=== PATIENT | male | born 1975 | race American Indian/Alaskan Native ===

== ENCOUNTER 2020-02-10 13:24 | Emergency (ER) | payer MEDICAID, SELFPAY ==
[2020-02-10] VITALS (42 sets, daily range): BP systolic 136–181; BP diastolic 84–114; PULSE 102–117; RESP 12–24; TEMP 36.8; O2SAT 88–100; BMI 26.4
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
[2020-02-10 13:55] LABS: Add Manual Diff / Slide Review NO; Basophils Absolute Auto 0 /uL (0-100); Basophils Percent Auto 0.5 % (0-2); Eosinophils Absolute Auto 100 /uL (0-450); Eosinophils Percent Auto 1.4 % (2-4); Hematocrit 43.7 % (41-53); Hemoglobin 14.5 g/dL (13.5-17.5); Lymphocytes Absolute Auto 1500 /uL (1100-4500); Lymphocytes Percent Auto 16.6 % (25-40); Mean Corpuscular HGB Conc 33.2 % (30-36); Mean Corpuscular Hemoglobin 28.8 PG (26-34); Mean Corpuscular Volume 86.7 fL (80-100); Monocytes Absolute Auto 500 /uL (0-900); Neutrophils Absolute Auto 6900 /uL (1500-7000); Neutrophils Percent Auto 75.5 % (50-75); Platelet Count 416 X10^3/uL (150-400); Red Blood Cell Count 5.04 X10^6/uL (4.5-5.9); Red Cell Distribution Width 14.7 % (11.6-14.8); White Blood Cell Count 9.2 X10^3/uL (4.5-11.0)
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
--- NOTE | 2020-02-10 14:01 | PC.NURSE ---
see trauma flow sheet
[2020-02-10 14:06] LABS: PTT Partial Thromboplastin Tim 34 SECONDS (26.4-36.2)
[2020-02-10 14:08] LABS: Alanine Aminotransferase 116 IU/L (<50); Albumin 4.1 g/dL (3.5-5.0); Albumin Globulin Ratio 1.2 (1.0-2.8); Alkaline Phosphatase 105 U/L (38-126); Aspartate Aminotransferase 69 IU/L (17-59); BUN Creatinine Ratio 16.1 (6-22); Bilirubin Total 0.6 mg/dL (0.2-1.3); Blood Urea Nitrogen 14 mg/dL (9-20); Calcium 8.9 mg/dL (8.4-10.2); Carbon Dioxide 29 mmol/L (22-32); Chloride 106 mmol/L (98-107); Estimated Glomerular Filt Rate > 60.0 mL/min (>60); Globulin 3.3 g/dL (1.7-4.1); Glucose 96 mg/dL (70-100); HEMOLYSIS < 15 (0-50); Lipase 56 U/L (23-300); Potassium 3.9 mmol/L (3.4-5.1); Sodium 139 mmol/L (137-145); Total Protein 7.4 g/dL (6.3-8.2)
--- NOTE | 2020-02-10 14:09 | DI.RAD.S_ITS ---
PROCEDURE: XR FOREARM RT 2V INDICATIONS: injury TECHNIQUE: 2 views of the forearm were acquired. COMPARISON: None. FINDINGS: Bones: No fractures or dislocations. No suspicious bony lesions. Soft tissues: No suspicious soft tissue calcifications or masses. IMPRESSION: No acute osseous abnormality. Dictated by: Chaim Landa M.D. on 02/10/2020 at 13:40 Approved by: Chaim Landa M.D. on 02/10/2020 at 13:42
--- NOTE | 2020-02-10 14:09 | DI.RAD.S_ITS ---
PROCEDURE: XR WRIST RT MIN 3V INDICATIONS: injury TECHNIQUE: 4 views of the wrist were acquired. COMPARISON: None. FINDINGS: Bones: No fractures or dislocations. No suspicious bony lesions. Scaphoid view: Intact Soft tissues: No suspicious soft tissue calcifications. IMPRESSION: No acute osseous abnormality. Dictated by: Chaim Landa M.D. on 02/10/2020 at 13:37 Approved by: Chaim Landa M.D. on 02/10/2020 at 13:40
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
[2020-02-10] MEDS: HYDROMORPHONE 1 MG INJ IV ×3 (14:18→18:15)
--- NOTE | 2020-02-10 14:38 | PC.NURSE ---
charge nurse, Gemma with patient to Ct until primary Duncan Cornejo was available. Trauma help, Rn, Zachary and Leonora also with patient to CT scan
[2020-02-10 15:14] LABS: COVID19 -Nasal RAPID Negative (Negative)
[2020-02-10] MEDS: SODIUM CHLORIDE 0.9% 1,000 ML 1000 ML IV (15:43)
--- NOTE | 2020-02-10 15:48 | PC.NURSE ---
Patient has been given a total of 2 mg dilaudid via IV. He reports that his pain is under control. His heart rate is consistently above 100 bpm. Currently it is 115 and sinus rhythm. The patient stated that he smoked methamphetamine this morning. Still awaiting urine for drug screen.
[2020-02-10 18:18] LABS: Ur Creatinine Normal (Normal); Ur Specific Gravity Normal (Normal); Urine Tetrahydrocannabinol Negative (Negative); Urine pH Normal (Normal)
[2020-02-10 18:22] LABS: UR Morphine/Opiate cutoff 300 Positive (Negative); Urine Amphetamines Positive (Negative); Urine Barbiturates Negative (Negative); Urine Cocaine Negative (Negative); Urine MDMA Positive (Negative); Urine Methamphetamines Positive (Negative); Urine Phencyclidine Negative (Negative)
[2020-02-10 18:23] LABS: Urine Benzodiazepines Negative (Negative); Urine Methadone Negative (Negative); Urine Oxycodone Negative (Negative); Urine Tricyclic Antidepressant Negative (Negative)
--- NOTE | 2020-02-10 18:43 | PC.NURSE ---
weak pulse, provider aware and assessed pulse at bedside.
--- NOTE | 2020-02-10 18:47 | PC.NURSE ---
patient saline infusion paused but continued in route
== END 2020-02-10 18:48 | disposition short-term general hospital (02) ==
PROVIDERS: Emergency Provider Emergency Medicine
DX: S82.142A Displaced bicondylar fracture of left tibia, initial encounter for closed fracture (principal); R10.2 Pelvic and perineal pain; R07.89 Other chest pain; R00.0 Tachycardia, unspecified; Y08.89XA Assault by other specified means, initial encounter
CPT/HCPCS: 29530; 71045; 71260; 72170; 73090; 73110; 73560; 73700; 74177; 80053; 80305; 81003; 83690; 85025; 85610; 85730; 86850; 86900; 86901; 87635; 96361; 96374; 96376; 99285; 99291; 99292; J1170; Q9967